=== PATIENT | male | born 1960 | race Caucasian/White ===

== ENCOUNTER → 2018-10-17 | Outpatient (CLI) | payer OTHER ==
--- NOTE | 2018-10-17 15:55 | PCVCIMAG ---
APPROVED REPORT Study performed: 10/17/2018 13:53:50 Exam: Stress Echocardiogram Indication: fatigue Patient Location: Echo lab Stress Nurse: Darby Cha RN Status: routine Ht: 6 ft 0 in HR: 81 bpm BP: 110/85 mmHg Rhythm: NSR Procedure The patient underwent an Exercise Stress Test using the Demario Protocol. Blood pressure, heart rate, and EKG were monitored. An Echocardiogram was performed by x ray electronics wiring technician in four stages in quad fashion. At peak stress, four selected images were obtained and placed side by side with resting images for comparison. Stress Test Details Stress Test: Exercise stress testing was performed using a Demario protocol. HR Resting HR: 81 bpmMax Heart Rate (APMHR): 163 bpm Max HR Achieved: 200 bpmTarget HR (85% APMHR): 138 bpm % of APMHR: 122 Recovery HR: 129 bpm HR response to stress: Normal HR response to stress BP Resting BP: 110/85 mmHg Max BP: 154/78 mmHg Recovery BP: 122/78 mmHg BP response to stress: Normal blood pressure response to stress. ECG Resting ECG: Sinus Rhythm Stress ECG: Sinus Rhythm ST Change: Normal Maximum ST Deviation: 0 mm Arrhythmia: None Recovery ECG: Sinus Rhythm Recovery ST Change: Normal Recovery ST Deviation: 0 mm Recovery Arrhythmia: VPC Clinical Reason for Termination: Maximal effort Stress Symptoms: Leg Fatigue Exercise duration: 12 min sec Highest Stage Achieved: Stage 4: 4.2 mph at 16% grade. Exercise capacity: 13.70 METs Overall Exercise Capacity for Age: Good Angina Score: None Stress ECG Conclusion Clinical: Non-ischemic ECG: Non-ischemic Gutierrez Treadmill Score is 12.0 which is Low risk. Pre-Stress Echo The resting Echocardiogram showed normal left ventricular contractility with an estimated Ejection Fraction of about 55-60%. Normal wall motion in all segments on baseline images. Post-Stress Echo The stress Echocardiogram showed normal left ventricular contractility with an estimated Ejection Fraction of about 60-65%. Normal augmentation of wall motion in all segments on post stress images. Clinical No clinical or ECG evidence for ischemia. Conclusion Clinical Response: Non-ischemic Exercise Capacity: Superior Stress ECG Response: Non-ischemic Stress Echo Images: Non-ischemic The left ventricle is normal in size and wall thickness in both the rest and stress images. Normal color doppler study. No valvular insufficiencies or stenosis. Normal stress echocardiogram with maximal exercise stress. <Conclusion> The left ventricle is normal in size and wall thickness in both the rest and stress images. Normal color doppler study. No valvular insufficiencies or stenosis. Normal stress echocardiogram with maximal exercise stress.
== END | disposition home or self-care (01) ==
LOC: PCVCIMAG 13:54
PROVIDERS: ATTEND Internal Medicine
DX: I25.10 Atherosclerotic heart disease of native coronary artery without angina pectoris (principal)
CPT/HCPCS: 93325; 93351